=== PATIENT | male | born 1980 | race Two or more races ===

== ENCOUNTER 2018-07-03 18:26 | Emergency (ER) | payer OTHER ==
[~2018-07-03] VITALS: Ht 182.9 cm; Wt 128.4 kg
[2018-07-03] MEDS ORDERED: HYZAAR 100-12.1 EACH (18:48)
== END 2018-07-03 22:27 | disposition home or self-care (01) ==
LOC: ER 18:26
DX: K63.89 Other specified diseases of intestine (principal)

== ENCOUNTER 2025-01-31 23:44 | Emergency (ER) | payer OTHER ==
[~2025-01-31] VITALS: Ht 182.9 cm; Wt 147.4 kg
[~2025-01-31 23:44] MED LIST: HYZAAR 100-12.1 EACH
[2025-02-01] MEDS ORDERED: LOSARTAN-HCTZ1 EAC1 PO (00:04)
[2025-02-01] MEDS ORDERED: KETOROLAC TROMETHAMINE 30 MG VIAL IM STA (00:38)
[2025-02-01] MEDS ORDERED: DEXAMETHASONE SODIUM PHOSPHATE 4 MG/ML VIAL IM STA (00:38)
[2025-02-01] MEDS ORDERED: ORPHENADRINE CITRATE 30 MG/ML AMPUL IM STA (00:38)
[2025-02-01] MEDS ORDERED: 0.9 % SODIUM CHLORIDE 1,000 ML IV SCH (00:45)
[2025-02-01] MEDS ORDERED: KETOROLAC TROMETHAMINE 30 MG VIAL ONE (00:58)
[2025-02-01] MEDS ORDERED: ORPHENADRINE CITRATE 30 MG/ML AMPUL ONE (00:58)
[2025-02-01] MEDS ORDERED: DEXAMETHASONE SODIUM PHOSPHATE 4 MG/ML VIAL ONE (00:58)
[2025-02-01 01:39] LABS: BASO % 0.4 % (0.1-1.2); EOS # 0.07 (0.04-0.54); EOS % 0.6 % (0.7-7.0); LYMPH # 2.11 (1.18-3.74); LYMPH % 17.1 % (19.3-53.1); MEAN PLATELET VOLUME 8.90 fl (9.4-12.4); MONO # 0.73 (0.24-0.82); MONO % 5.9 % (4.7-12.5); NEUT # 9.35 (1.56-6.13); NEUT % 75.7 % (34.0-71.1); RED CELL DISTRIBUTION WIDTH 13.2 % (11.6-14.4)
[2025-02-01 01:54] LABS: ERYTHROCYTE SEDIMENTATION RATE 34 mm/hr (0-15)
[2025-02-01 01:59] LABS: INR 1.04
[2025-02-01 02:02] LABS: ALT/SGPT 50.0 U/L (12-78); AST/SGOT 20.0 U/L (15-37); BILIRUBIN TOTAL 0.48 mg/dL (0.3-1.2); BUN CREA RATIO 20.0 (7.0-25.0); CREATININE SERUM 0.92 mg/dL (0.70-1.30); GFR 89.37; GLOBULINA 4.1 G/DL (2.4-3.5); GLUCOSE FASTING 102.0 mg/dL (65-100); OSMOLALITY SERUM 285.0 MOSM/KG (275-295)
[2025-02-01 06:33] LABS: URINE APPEARANCE Clear; URINE BILIRRUBIN Negative (NEGATIVE); URINE BLOOD Small; URINE COLOR Yellow; URINE GLUCOSE Negative (NEGATIVE); URINE KETONE Negative (NEGATIVE); URINE LEUKOCYTE Negative; URINE NITRATE Negative; URINE UROBILINOGEN 0.2 E.U./dl
[2025-02-01 06:38] LABS: URINE BACTERIA 26.3 uL (0.0-1933); URINE CAST 1.69 uL (0.0-1.40); URINE EPITHELIAL CELLS 8.4 uL (0.0-38.8); URINE RBC 82.0 uL (0.0-20.8); URINE WBC 6.8 uL (0.0-23.2)
[2025-02-01 06:54] LABS: URINE PROTEIN 100 (NEGATIVE)
[2025-02-01] MEDS ORDERED: MORPHINE SULFATE 4 MG/ML CARTRIDGE IV STA (07:58)
[2025-02-01] MEDS ORDERED: TAMSULOSIN HCL 0.4 MG CAP PO STA (07:58)
[2025-02-01] MEDS ORDERED: MEDROLPACK PO (08:29)
[2025-02-01] MEDS ORDERED: TRAMADOL HCL E100 MG PO (08:29)
[2025-02-01] MEDS ORDERED: TAMS0.4C PO (08:29)
[2025-02-01] MEDS ORDERED: TAMSULOSIN HCL 0.4 MG CAP PO ONE (08:55)
== END 2025-02-01 14:38 | disposition home or self-care (01) ==
LOC: ER 23:45
PROVIDERS: Physician Assistant Medical
DX: M54.42 Lumbago with sciatica, left side (principal); N20.1 Calculus of ureter